=== PATIENT | male | born 1955 | race Caucasian/White ===

== ENCOUNTER → 2020-05-22 | Outpatient (CLI) | payer OTHER ==
[~2020-05-22] MED LIST: ASPI-630 PO; LISI-334 PO; METF10007 PO; METO100T7 PO; VITA50004 PO
[2020-05-22 13:24] VITALS: BP 133/86
== END | disposition home or self-care (01) ==
LOC: SURG 13:11
PROVIDERS: ATTEND Anesthesiology
DX: R20.0 Anesthesia of skin (principal); Z79.82 Long term (current) use of aspirin; Z79.84 Long term (current) use of oral hypoglycemic drugs
CPT/HCPCS: 99204; G0463

== ENCOUNTER → 2020-06-05 | Outpatient (CLI) | payer OTHER ==
[~2020-06-05] MED LIST changes: +BUPIVACAINE MPF 0.25% 10 ML VIAL. ONE; +IOHEXOL 300 MG/ML 50 ML VIAL. ONE; +LIDOCAINE 1% PF 30 ML VIAL. ONE; +methylPREDNISolone ACETATE 40 MG/ML VIAL. ONE
[2020-06-05 12:29] VITALS: BP 133/83
== END | disposition home or self-care (01) ==
LOC: SURG 11:26
PROVIDERS: ATTEND Anesthesiology
DX: M16.11 Unilateral primary osteoarthritis, right hip (principal); I10 Essential (primary) hypertension; E11.9 Type 2 diabetes mellitus without complications; Z79.84 Long term (current) use of oral hypoglycemic drugs; Z79.899 Other long term (current) drug therapy; Z79.82 Long term (current) use of aspirin; Z98.890 Other specified postprocedural states
CPT/HCPCS: 20610; J1030; J2001; J3490; Q9967; 77002

== ENCOUNTER → 2020-07-03 | Day surgery (SDC) | payer OTHER ==
[~2020-07-03] MED LIST changes: +ALOG25TA PO; -BUPIVACAINE MPF 0.25% 10 ML VIAL. ONE; -IOHEXOL 300 MG/ML 50 ML VIAL. ONE; -LIDOCAINE 1% PF 30 ML VIAL. ONE; +LISI1TAB37 PO; +TAMS0.4C97 PO; -methylPREDNISolone ACETATE 40 MG/ML VIAL. ONE
[2020-07-03 12:08] VITALS: BP 125/79
== END | disposition home or self-care (01) ==
LOC: SURG 12:00
PROVIDERS: ATTEND Anesthesiology
DX: M54.5 Low back pain (principal); E11.9 Type 2 diabetes mellitus without complications; I10 Essential (primary) hypertension; G89.29 Other chronic pain; M47.816 Spondylosis without myelopathy or radiculopathy, lumbar region; M16.11 Unilateral primary osteoarthritis, right hip; M51.36 Other intervertebral disc degeneration, lumbar region; Z79.84 Long term (current) use of oral hypoglycemic drugs; Z98.890 Other specified postprocedural states; Z79.899 Other long term (current) drug therapy; Z79.82 Long term (current) use of aspirin
CPT/HCPCS: 99214; G0463